=== PATIENT | female | born 1970 | race Two or more races ===

== ENCOUNTER 2024-06-24 05:40 | Day surgery (SDC) | payer BC, SELFPAY ==
--- NOTE | 2024-06-23 07:00 | EKG_ITS ---
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
[2024-06-23 12:11] VITALS: BMI 48.6
[2024-06-23 13:29] LABS: HCG,Qualitative Serum Negative
[2024-06-23 13:31] LABS: Basophils # (Auto) 0.1 Thou/mm3 (0.0-0.2); Basophils % (Auto) 1 % (0-2.5); Eosinophils # (Auto) 0.2 Thou/mm3 (0.0-0.5); Eosinophils % (Auto) 2 % (0-10); Immature Granulocytes % (Auto) 1 % (0-0); Immature Granulocytes Auto 0.07 Thou/mm3 (0.00-0.00); Lymphocytes # (Auto) 2.6 Thou/mm3 (1.0-4.8); Lymphocytes % (Auto) 37 % (10-50); Mean Corpuscular HGB Conc 33.3 g/dl (31.0-37.0); Mean Corpuscular Hemoglobin 28.8 pg (25.0-35.0); Mean Corpuscular Volume 86 fL (80-100); Monocytes # (Auto) 0.4 Thou/mm3 (0.0-0.8); Monocytes % (Auto) 5 % (0-12); Neutrophils # (Auto) 3.8 Thou/mm3 (1.8-7.7); Neutrophils % (Auto) 54 % (37-80); Nucleated Red Blood Cell % 0 /100 WBC (0); Platelet Count 274 Thou/mm3 (140-440); RDW Standard Deviation 41.8 fL (36.4-46.3); Red Blood Count 4.86 Miln/mm3 (4.00-5.20); White Blood Count 7.1 Thou/mm3 (3.6-11.0)
[2024-06-23 13:45] LABS: Alanine Aminotransferase 17 U/L (10-49); Albumin, Serum 4.4 gm/dL (3.5-5.0); Albumin/Globulin Ratio 1.5 (1.2-2.2); Alkaline Phosphatase 93 U/L (46-116); Anion Gap 10 (7-16); Aspartate Amino Transferase 15 U/L (0-34); BUN/Creatinine Ratio 17 Ratio (12-20); Bilirubin,Total 0.2 mg/dL (0.3-1.2); Blood Urea Nitrogen 12 mg/dL (9-23); Calcium 9.5 mg/dL (8.3-10.6); Calcium (Corrected) 9.5 mg/dL (8.5-10.1); Carbon Dioxide 29.9 mMol/L (20.0-31.0); Chloride 102 mMol/L (98-107); Creatinine (Component) 0.7 mg/dL (0.6-1.3); Estimated Creatinine Clearance 141.4 mL/min (>60); Globulin 2.9 gm/dL (2.3-3.5); Glucose 132 mg/dL (74-106); Osmolality,Calculated 284 (275-295); Potassium 3.3 mMol/L (3.4-5.1); Sodium 142 mMol/L (136-145); Total Protein 7.3 gm/dL (5.7-8.2); eGFR > 60 See Note
[2024-06-23 14:19] LABS: Hepatitis A Antibody IgM Non Reactive (Non React); Hepatitis B Core Antibody IgM Non Reactive (Non React); Hepatitis B Surface Antigen Non Reactive (Non React); Hepatitis C Antibody Non Reactive (Non React)
[2024-06-23 15:54] LABS: HIV (1&2) Antibody Rapid Non-Reactive
[2024-06-24] VITALS (14 sets, daily range): BP systolic 109–151; BP diastolic 58–81; PULSE 67–81; RESP 12–95; TEMP 36.1–36.6; O2SAT 92–100; BMI 48.8; BMI 50.8
[2024-06-24] MEDS: RINGERS LACTATED 1000 ML 1,000 ML 20 ML IV (06:54)
--- NOTE | 2024-06-24 07:47 | ESHP_ITS ---
Documentation for date of: 06/24/24 VISUAL MERCHANDISING MANAGER - HPI History of Present Illness History of present illness: Ms. LOTT is a 54 year old female 54-year-old 5 with previous C- section x 1 is admitted for a total laparoscopic hysterectomy bilateral salpingectomy to md bilateral oophorectomy under general anesthesia for recurrent episodes of postmenopausal bleeding. Patient is morbidly obese with chronic hypertension which has been fairly well-controlled and she has been cleared by her PCP for the surgery. Patient was seen last year for concerns of postmenopausal bleeding recurrent had an office biopsy which was negative however because of persistent postmenopausal bleeding she was taken for hysteroscopy and endometrial polypectomy which showed simple hyperplasia. Patient was started on progesterone however her episodes of bleeding has continued and patient desires hysterectomy at this point Meds Home Medications and Allergies Home Medications ?Medication ?Instructions ?Recorded ?Confirmed ?Type losartan 50 mg tablet 100 mg PO QDAY 09/10/2306/06 History hydrochlorothiazide 12.5 mg tablet 12.5 mg PO DAILY 06/23/24 History liraglutide 0.6 mg/0.1 mL (18 mg/3 0.6 mg subcut QDAY 06/23/24 06/23/24 History mL) subcutaneous pen injector (Victoza 3-Rainer) Allergies Allergy/AdvReac Type Severity Reaction Status Date / Time No Known Allergies Allergy Verified 06/23/24 12:06 Exam - VISUAL MERCHANDISING MANAGER Vital Signs Temp Pulse Resp BP Pulse Ox 97.9 F 76 19 151/81 H 98 06/24/24 06:40 06/24/24 06:40 06/24/24 06:40 06/24/24 06:40 06/24/24 06:40 Constitutional Constitutional: no acute distress Routine HEENT Exam Head: Present normocephalic and atraumatic Eye: Present EOMI and PERRL ENT: Present mucous membranes moist Routine Neck Exam Neck: Present supple and trachea midline Routine Respiratory Exam Respiratory: Present chest non-tender, lungs clear, normal breath sounds and no resp distress Routine Cardiovascular Exam Cardiovascular: Present RRR Routine Abdominal Exam Abdominal: Present soft and normoactive bowel sounds Routine Extremities Exam Extremities: Present full ROM Routine Skin Exam Skin: Present intact and dry Routine Neurological Exam Neurological: Present alert, oriented X3 and CN II-XII intact Routine Psychiatric Exam Psychiatric: Present normal affect and normal thought process VISUAL MERCHANDISING MANAGER - Results Labs 06/23/24 12:43 06/23/24 12:43 Labs: Short CBC 06/23/24 Range/Units 12:43 WBC 7.1 (3.6-11.0) Thou/mm3 Hgb 14.0 (12.0-16.0) g/dL Hct 42.0 (36.0-46.0) % Plt Count 274 (140-440) Thou/mm3 BMP 06/23/24 12:43 Sodium 142 Potassium 3.3 L Chloride 102 Carbon Dioxide 29.9 BUN 12 Creatinine 0.7 Glucose 132 H Calcium 9.5 Liver Function 06/23/24 Range/Units 12:43 Total Bilirubin 0.2 L (0.3-1.2) mg/dL AST 15 (0-34) U/L ALT 17 (10-49) U/L Alkaline Phosphatase 93 (46-116) U/L Albumin 4.4 (3.5-5.0) gm/dL Impressions Impression: 54-year-old para 5 with previous x 1 admitted for total laparoscopic hysterectomy BSO Chronic hypertension controlled on medications Cleared by her PCP for the surgery Indication of surgery persistent episodes of postmenopausal bleeding with biopsy of simple hyperplasia last year Ultrasound 10.6 cm uterus with no ovarian pathology Pap smear NILM HPV negative Morbid obesity with BMI 48 Assessment and Plan Additional Assessment & Plan Additional Plan: Admit for total laparoscopic hysterectomy BSO Antibiotic prophylaxis DVT prophylaxis Quality Measures Quality Measures VTE prophylaxis
--- NOTE | 2024-06-24 11:43 | SUR.OPER ---
daughter notified of patients status [id number]
--- NOTE | 2024-06-24 13:17 | SUR.PHASEI ---
1317 Patient arrived to recovery resting comfortably in bed, on oxygen 10L via oxy mask with an oral airway and nasopharyngeal airway in place as well, breathing unlabored, vital signs stable, dressing intact to abdomen; dermabond and to vaginal area; peripad, no bleeding noted, lung sounds clear upon auscultation, bilateral radial pulses present when palpated, report Luis ARELLANO and Dr. Swan
--- NOTE | 2024-06-24 13:25 | PD.GYNPROC ---
Operative Note - DRILL [employer] HAND Procedure Date of procedure: 06/24/24 Procedure Performed: Total laparoscopic hysterectomy bilateral salpingectomy left oophorectomy Cystoscopy Indication: Postmenopausal bleeding recurrent episodes Focal endometrial hyperplasia on hysteroscopy last year Morbid obesity Pre-Op diagnosis: Same Post-Op diagnosis: Same Anesthesia type: General Procedure description: The patient was seen prior to surgery. The potential benefits and risks of the procedure, the likelihood of success, and the problems related to recuperation have been discussed with patient who agrees to proceed. The possible results of nontreatment and significant alternatives to the proposed procedure have also been explained, along with the risks and benefits of the alternatives. Risks and benefits of chosen anesthetic/sedation and possible use of blood/blood products (if appropriate) were discussed.The patient was identified as Mary Crisostomo and the procedure verified. A time out was held reviewing the patient identifiers, procedure planned and allergies.After administration of general anesthesia, the patient was placed in the dorsal lithotomy position, and prepped and draped in the usual sterile fashion. On examination under anesthesia,the uterus was anteverted at 10wk size. A reyes catheter was placed. The speculum was placed in the vagina, the cervix was grasped with the tenaculum, and a vaginal uterine manipulator large Vcare was inserted. This area was then draped off the remainder of the operative field. This area was then draped off the remainder of the operative field. Supraumblical incision made and a verees needle used to establish pneumoperitioneum. 5 mm tracar inserted under optiview. After insufflation, a full survey of the abdominal cavity was done, and there were no abnormalities visualized. The patient was placed in Trendelenburg position, and the bowel was pushed out of the pelvis. At this time, a second skin incision was made 4 cm rt of the mildline port , and a second 5 mm trocar and sleeve were advanced under direct visualization. The trocar was withdrawn and replaced with a probe. A third incision was made at Left ASIS and the trocar placed under direct visualization without difficulty. Upon visualization of the pelvic organs, the uterus, left fallopian tubes and ovary were normal. Uterus was found to be anteverted . manipulation to keep wander bowel out of wander surgcal field was done .. The end of the left fallopian tube was grasped with the grasper and the enseal device was then used to transect the mesosalpinx inferior to the fallopian tube, then the left round ligament followed by the left ligament were doubly coagulated with the and transected without difficulty. The uterine vessels, anterior and posterior leaves of the broad ligament were coagulated and transected in a serial manner to the level of the uterine artery. A similar procedure was carried out on the right. Dense adhesions between the anterior uterine wall and the bladder bed was noted and slowly adhesions were taken down by combining both sharp and blunt dissection using suction tip. After all of the bladder adhesions were taken down bilateral uterine artery ligation was performed. Using harmonic colpotomy completed with harmonic device and vaginally the specimen was retrieved. Her right ovary could not be removed as it was plastered to the lateral pelvic wall and ovary was atrophied however right tube along with left ovary and tube were successfully removed. We also found out gallstone in the peritoneal cavity which was removed patient has a prior history of cholecystectomy .specimen retrieved vaginally along with b/l tubes and ovaries, it was passed off the operative field. The pedicles were evaluated with no bleeding noted. Vaginal stitching of the cuff done. Hemostasis was noted. Diagnostic cystoscopy done, dome examined with wander bubble, to be intact . B./L strong jets noticed Skin incision was repaired using monocryl 4-0 in a subcuticular stitch. The instrument, sponge, and needle counts were correct. Band-Aid were applied for dressing and the patient was taken to the recovery room in satisfactory condition.There were no complications.? Estimated blood loss (ml): 50 Surgical staff Operation Date: 06/24/24 09:00 Case Staff Anesthesiologist: Tremayne Swan RN First Assistant: Kate Hagen RNerp business analyst: Columba Jaimes Diagnosis Problem List Completed Was Problem List Reviewed/Reconciled?: Yes
[2024-06-24] MEDS: HYDROmorphone INJ 2 MG/ML VIAL 0.4 MG IV ×2 (13:38→13:46)
[2024-06-24] MEDS: ACETAMINOPHEN IVPB 1,000 MG/100 ML VIAL 250 MG IV (13:39)
[2024-06-24] MEDS: Morphine Sulfate PF 1 MG/ML PCA VIAL 30 ML 30 MG IV (14:04)
[2024-06-24] MEDS: RINGERS LACTATED 1000 ML 1,000 ML 125 ML IV ×2 (14:04→21:45)
--- NOTE | 2024-06-24 15:02 | SUR.PHASEII ---
1455 Report given to Shannon ARELLANO, patient meets discharge criteria from recovery, awake and resting in bed comfortably, breathing unlabored, vital signs stable, pain controlled with [employer]OR [employer], dressing intact; no bleeding noted, eating ice chips; tolerating well, denies nausea, urinary catheter in place with leg secure. 3195 Patient transported via bed to room 359 without incident, family made aware of patients med-surg room and stated they would meet patient in the room
[2024-06-24] MEDS: DOCUSATE SOD 100 MG CAPSULE PO (21:43)
[2024-06-24] MEDS: ACETAMINOPHEN 500 MG TABLET PO (23:32)
[2024-06-24] MEDS: SIMETHICONE 80 MG CHEW PO (23:32)
[2024-06-25] VITALS (10 sets, daily range): BP systolic 115–160; BP diastolic 64–86; PULSE 72–99; RESP 13–94; TEMP 36.2; O2SAT 92–97
[2024-06-25 05:33] LABS: Basophils % (Auto) 0 % (0-2.5); Eosinophils % (Auto) 0 % (0-10); Hematocrit 35.4 % (36.0-46.0); Hemoglobin 11.7 g/dL (12.0-16.0); Immature Granulocytes % (Auto) 1 % (0-0); Immature Granulocytes Auto 0.09 Thou/mm3 (0.00-0.00); Lymphocytes # (Auto) 2.1 Thou/mm3 (1.0-4.8); Lymphocytes % (Auto) 17 % (10-50); Mean Corpuscular HGB Conc 33.1 g/dl (31.0-37.0); Mean Corpuscular Hemoglobin 28.5 pg (25.0-35.0); Mean Corpuscular Volume 86 fL (80-100); Monocytes # (Auto) 0.5 Thou/mm3 (0.0-0.8); Monocytes % (Auto) 4 % (0-12); Neutrophils % (Auto) 79 % (37-80); Nucleated Red Blood Cell % 0 /100 WBC (0); Platelet Count 247 Thou/mm3 (140-440); RDW Standard Deviation 42.5 fL (36.4-46.3); White Blood Count 12.8 Thou/mm3 (3.6-11.0)
[2024-06-25] MEDS: RINGERS LACTATED 1000 ML 1,000 ML 125 ML IV (06:05)
[2024-06-25] MEDS: ACETAMINOPHEN 500 MG TABLET PO (06:30)
[2024-06-25] MEDS: SIMETHICONE 80 MG CHEW PO (06:31)
[2024-06-25] MEDS: hydroCHLOROthiazide 12.5 MG CAPSULE PO (08:06)
[2024-06-25] MEDS: DOCUSATE SOD 100 MG CAPSULE PO (08:07)
[2024-06-25] MEDS: LOSARTAN POTASSIUM 25 MG TABLET 100 MG PO (08:07)
--- NOTE | 2024-06-25 09:11 | ESDS_ITS ---
Planned Discharge Date 06/25/24 DS: Providers Provider Date of admission: 06/24/24 15:05 Primary care physician: SILVER Barraza Admitting Provider: Guerda Reynolds MD Attending Provider on Admission: Guerda Reynolds MD Attending Provider on DC: Guerda Reynolds MD Discharging Provider: Guerda Reynolds MD Hospital Course Hospital Course Hospital course: Ms. LOTT is a 54 year old female 54-year-old 5 with previous C- section x 1 is admitted for a total laparoscopic hysterectomy bilateral salpingectomy to ar bilateral oophorectomy under general anesthesia for recurrent episodes of postmenopausal bleeding. Patient is morbidly obese with chronic hypertension which has been fairly well-controlled and she has been cleared by her PCP for the surgery. Patient was seen last year for concerns of postmenopausal bleeding recurrent had an office biopsy which was negative however because of persistent postmenopausal bleeding she was taken for hysteroscopy and endometrial polypectomy which showed simple hyperplasia. Patient was started on progesterone however her episodes of bleeding has continued and patient desires hysterectomy at this point Time Spent with Patient Time attestation: Total time spent providing and/or coordinating discharge services: Quality: VTE Deep Vein Thrombosis/Pulmonary Embolism Present on Admission: No Exam - VARITYPIST Vital Signs Temp Pulse Resp BP Pulse Ox O2 Del Method O2 Flow Rate 97.1 F 73 17 123/67 93 L Room Air 4 06/25/24 04:00 06/25/24 08:07 06/25/24 08:00 06/25/24 08:07 06/25/24 04:00 06/25/24 04:00 06/24/24 13:47 Discharge Plan Plan Patient Disposition: HOME (Self Care) Prescriptions/Referrals Prescriptions/Med Rec: New acetaminophen-codeine 300-15 mg tablet 1 tab PO Q12H PRN (Reason: pain) Qty: 14 0RF ibuprofen 800 mg tablet 800 mg PO Q8H PRN (Reason: pain) Qty: 20 0RF docusate sodium [Colace] 100 mg capsule 100 mg PO QDAY Qty: 60 0RF metronidazole 500 mg tablet 500 mg PO Q12H Qty: 30 0RF doxycycline monohydrate 100 mg capsule 100 mg PO BID Qty: 30 0RF No Action losartan 50 mg Tablet 100 mg PO QDAY acetaminophen 500 mg capsule 500 mg PO Q6H PRN (Reason: fever or pain) Qty: 20 0RF liraglutide [Victoza 3-Rainer] 0.6 mg/0.1 mL (18 mg/3 mL) pen injector 0.6 mg subcut QDAY hydrochlorothiazide 12.5 mg tablet 12.5 mg PO DAILY Patient Comments: TAKE 1 TABLET BY MOUTH EVERY DAY IN THE MORNING FOR 30 DAYS Referrals: Malinda Rutherford, FLAT BREAKDOWN PROCESSOR [Primary Care Provider] - Patient/Caregiver Discharge Instructions Print Language: Azerbaijani Stand Alone Forms: Shanae Award Info., Patient Portal Info Letter
--- NOTE | 2024-06-25 09:29 | PC.NURSE ---
Dr. Reynolds in to see pt. Family at bedside. Discussed plan of care. Questions asked and answered. New orders received, read back and carried out.
[2024-06-25] MEDS: KETOROLAC INJ 30 MG/ML VIAL IVP (10:02)
[2024-06-25] MEDS: Milk Of Magnesia Susp 30 ML UDC PO (10:02)
== END 2024-06-25 14:38 | disposition home or self-care (01) ==
LOC: S2EX 06:03 → S3NX 06-25 08:11
PROVIDERS: PCP Nurse Practitioner Family; Referring Provider Student in an Organized Health Care Education/Training Program; Visit Provider Student in an Organized Health Care Education/Training Program
PROC: 0UT94ZZ Resection of Uterus, Percutaneous Endoscopic Approach (ICD-10-PCS; CPT 58571; principal; 2024-06-24 09:00)
PROC: (CPT 58720; 2024-06-24 09:00)
DX: N85.00 Endometrial hyperplasia, unspecified (principal); Z68.43 Body mass index [BMI] 50.0-59.9, adult; N95.0 Postmenopausal bleeding; E66.01 Morbid (severe) obesity due to excess calories; I10 Essential (primary) hypertension; Z01.810 Encounter for preprocedural cardiovascular examination
CPT/HCPCS: 58571; 36415; 80053; 80074; 84703; 85014; 85018; 85025; 86703; 86850; 86900; 86901; 93005; A4217; A4649; J0131; J0690; J1100; J1885; J2250; J2270; J2405; J2704; J3010; J3490; J7120; A9270